=== PATIENT | male | born 1985 | race Caucasian/White ===

== ENCOUNTER 2025-04-13 07:17 | Emergency (ER) | payer MEDICAID ==
[~2025-04-13] VITALS: Ht 177.8 cm; Wt 195.4 kg
[~2025-04-13 07:17] MED LIST: FURO20TA5 PO; LEVO250T75 PO; METF-1211 PO
[2025-04-13 07:28] VITALS: TEMP 98.1
[2025-04-13] MEDS ORDERED: SEMA1PEN5 SQ (07:32)
[2025-04-13 08:01] LABS: PLATELET COUNT (AUTO) 202 K/uL (150-450); RED BLOOD CELL COUNT(AUTO) 5.28 MIL/uL (4.50-5.90); RED CELL DISTRIBUTION WIDTH 16.8 % (11.5-14.5); WHITE BLOOD COUNT (AUTO) 4.8 K/uL (4.5-11.0)
[2025-04-13 08:12] LABS: CALCIUM, TOTAL 8.6 mg/dL (8.8-10.5); CREATININE 0.94 mg/dL (0.60-1.30); GLOMERULAR FILTR. RATE CALC > 60 mL/min (>60); GLUCOSE,RANDOM 103 mg/dL (70-110); SODIUM SERUM 138 mmol/L (136-145); UREA NITROGEN, BLOOD 13 mg/dL (7-18)
[2025-04-13 08:22] LABS: TROPONIN I-HIGH SENSITIVITY 6 ng/L (<76)
[2025-04-13] MEDS: ACETAMINOPHEN 500 MG TABLET PO ONE (08:51)
[2025-04-13] MEDS: SODIUM CHLORIDE 0.9% 1,000 ML IV ONE (08:51)
[2025-04-13] MEDS: ONDANSETRON HCL 4 MG/2 ML VIAL IVP ONE ×2 (08:51→10:16)
[2025-04-13] MEDS: MECLIZINE HCL 25 MG TABLET PO ONE (08:51)
[2025-04-13] MEDS: LORazepam 2 MG/ML VIAL IVP ONE (10:18)
[2025-04-13] MEDS ORDERED: ONDA-104 PO (13:36)
[2025-04-13] MEDS ORDERED: MECL-134 PO (13:36)
[2025-04-13 13:56] VITALS: BP 112/60; PULSE 69; RESP 18; O2SAT 98
== END 2025-04-13 14:10 | disposition home or self-care (01) ==
LOC: EMS 07:17
DX: R42 Dizziness and giddiness (principal); E66.01 Morbid (severe) obesity due to excess calories; Z98.890 Other specified postprocedural states; Z79.899 Other long term (current) drug therapy; Z68.44 Body mass index [BMI] 60.0-69.9, adult
CPT/HCPCS: 99285; 96374; 70450; 96361; 96375; 80048; 84484; 85025; 36415; 93005; 96376; J2060; J2405; J7030